=== PATIENT | female | born 1980 | race Hispanic/Latino ===

== ENCOUNTER 2018-11-14 08:57 | Emergency (ER) | payer BC ==
--- NOTE | 2018-11-14 10:28 | ED PDOC ---
Lower Extremity Pain/Injury Time Seen by Provider: 11/14/18 09:02 Chief Complaint (Nursing): Lower Extremity Problem/Injury Chief Complaint (Provider): Lower Extremity Problem/Injury History Per: Patient History/Exam Limitations: no limitations Onset/Duration Of Symptoms: Sudden Onset Current Symptoms Are (Timing): Still Present Additional Complaint(s): 38 year old female arrives to the emergency department via ambulance status post mechanical fall this morning. Patient reports that [place] when her left leg slipped between the platform and train as her right knee struck the side of train car. Bystanders were able to help assist her from position and [employer] workers immediately applied ice to affected area. She reports minimal bleeding upon onset but no pain to her right leg or loss of movement to her left leg. LMP: started 11/13/18. PCP: none provided Past Medical History Reviewed: Historical Data, Nursing Documentation, Vital Signs Primary Care Provider: Non [facility] Provider, - Medical History PMH: No Chronic Diseases - Surgical History Surgical History: No Surg Hx - Family History Family History: States: Unknown Family Hx - Allergies Allergies/Adverse Reactions: Allergies Allergy/AdvReac Type Severity Reaction Status Date / Time No Known Allergies Allergy Verified 11/14/18 09:11 Review of Systems ROS Statement: Except As Marked, All Systems Reviewed And Found Negative Musculoskeletal: Positive for: Leg Pain (left bradshaw with minimal bleeding) Physical Exam - Reviewed Nursing Documentation Reviewed: Yes Vital Signs Reviewed: Yes - Physical Exam Appears: Positive for: No Acute Distress, Uncomfortable Head Exam: Positive for: ATRAUMATIC, NORMAL INSPECTION, NORMOCEPHALIC Skin: Positive for: Normal Color Eye Exam: Positive for: Normal appearance ENT: Positive for: Normal ENT Inspection Neck: Positive for: Normal, Painless ROM Cardiovascular/Chest: Positive for: Regular Rate, Rhythm Respiratory: Positive for: Normal Breath Sounds. Negative for: Respiratory Distress Pulses-Dorsalis Pedis (L): 2+ Pulses-Dorsalis Pedis (R): 2+ Pulses-Post. Tibialis (L): 2+ Pulses-Post. Tibialis (R): 2+ Extremity: Positive for: Normal ROM (bilateral knee and ankles), Other (superfical abrasion to left mid-tibia and mild surounding erythema without active bleeding). Negative for: Pedal Edema, Deformity Neurological/Psych: Positive for: Awake, Alert, Normal Tone, Symmetric/Intact Strength (5/5), Oriented, Gait (steady). Negative for: Motor/Sensory Deficits Medical Decision Making Medical Decision Making: Time: 919 Initial Plan: injury to left leg status post mechanical fall. low suspicion for bony injury. XR tibia/fibula to confirm. Pain control initiated. Most likely, discharge with Rx refill and referral to PCP for follow up. Time: 1102 --XR tibia/fibula interpreted by provider: (-) fracture. Official read pending, will contact patient for abnormality. Upon provider reevaluation, patient is medically stable, reports improvement in symptoms, and requires no further treatment in the ED at this time. Patient will be discharged home with recommendation for Tylenol and Motrin PRN pain. Counseling was provided and all questions were answered regarding diagnosis. There is agreement to discharge plan. Return precautions discussed. Clinical Impression: left lower leg injury Scribe Attestation: Documented by Hyacinth Batista, acting as a scribe for *Yolis Jessica MD. Provider Scribe Attestation: All medical record entries made by the Scribe were at my direction and personally dictated by me. I have reviewed the chart and agree that the record accurately reflects my personal performance of the history, physical exam, medical decision making, and the department course for this patient. I have also personally directed, reviewed, and agree with the discharge instructions and disposition. Disposition - Clinical Impression Clinical Impression: Lower leg injury - Patient ED Disposition Is Patient to be Admitted: No Counseled Patient/Family Regarding: Studies Performed, Diagnosis, Need For Followup, Rx Given - Disposition Disposition: Routine/Home Disposition Time: 11:03 Condition: IMPROVED Additional Instructions: Take Tylenol or Motrin for pain. No limitations to activity unless it causes pain. Follow up with primary medical doctor as needed. Forms: [employer] ([place]), [facility] ED School/Work Excuse Print Language: ARMENIAN
[2018-11-14] MEDS ORDERED: Bacitracin 500 Units/gm Oint Foilpak UD ONE (11:16)
[2018-11-14 11:36] VITALS: RESP 18; TEMP 98.2; O2SAT 99
[2018-11-14 11:38] VITALS: BP 140/86; PULSE 82
--- NOTE | 2018-11-14 15:15 | RAD ---
Date of service: 11/14/2018 PROCEDURE: Radiographs of the left tibia and fibula. HISTORY: rule out fracture to ant tibia COMPARISON: None available. TECHNIQUE: Frontal and lateral views obtained. 2 views obtained. FINDINGS: BONES: No fracture or destructive lesion. JOINT SPACES: Unremarkable. OTHER FINDINGS: None. IMPRESSION: Unremarkable radiographs of the left tibia and fibula.
== END 2018-11-14 11:27 | disposition home or self-care (01) ==
LOC: H.ER 08:57
DX: S89.92XA Unspecified injury of left lower leg, initial encounter (principal); W19.XXXA Unspecified fall, initial encounter; Y92.89 Other specified places as the place of occurrence of the external cause